=== PATIENT | male | born 1945 | race Caucasian/White ===

== ENCOUNTER 2025-04-16 03:43 | Emergency (ER) | payer MEDICARE, SELFPAY ==
[2025-04-16] VITALS (12 sets, daily range): BP systolic 115–127; BP diastolic 59–61; PULSE 55–62; RESP 18–20; TEMP 36.9; O2SAT 84–97; BMI 34.4
--- NOTE | 2025-04-16 03:53 | DI.CT.S_ITS ---
PROCEDURE: CT ABDOMEN PELVIS W CON INDICATIONS: LLQ pain, L groin pain, acute on chronic TECHNIQUE: After the administration of intravenous contrast, axial sections acquired from the lung bases to the pubic symphysis. Coronal and sagittal reformats were performed. For radiation dose reduction, the following was used: automated exposure control, adjustment of mA and/or kV according to patient size. COMPARISON: None. FINDINGS: Image quality: Diagnostic. Lower Chest: Elevated left diaphragm. Three-vessel coronary artery calcifications are noted. Dependent atelectasis. ABDOMEN: Liver: Fatty infiltration of the liver. No mass, intrahepatic biliary dilation or cirrhosis. Portal vein is patent. Mild enlargement of the liver. Gallbladder: No radiopaque gallstones or wall thickening. Biliary ducts: No biliary dilation. Pancreas: No ductal dilation. Spleen: Size is within normal limits. Adrenal Glands: No adrenal nodules. Kidneys and Ureters: No hydronephrosis. No solid mass. No complex renal cystic lesion which requires follow up. 6 mm nonobstructing mid left renal stone. Stomach and Bowel: Normal colonic caliber, without significant wall thickening. Colonic diverticulosis is present. Subtle inflamed fat lobule on the anterior margin of the sigmoid colon best seen on image 2, 126. Normal appendix. Otherwise, the stomach, small bowel and large bowel are unremarkable. Peritoneum: No abnormal intraperitoneal fluid. No free air. Ventral Wall: No significant ventral hernia. Abdominal Nodes: No retroperitoneal or mesenteric adenopathy by size criteria. Vessels: Aorta and inferior vena cava are normal in size. Moderate atheromatous plaques are noted in the nonaneurysmal abdominal aorta. PELVIS: Pelvic Organs: Mild prostate gland enlargement with coarse and punctate calcifications. Mild seminal vesicle gland enlargement. Bladder: No bladder wall thickening, accounting for underdistention. Pelvic Nodes: No enlarged lymph nodes. Miscellaneous: No inguinal hernias are seen. Bones: No aggressive osseous abnormality. Multilevel degenerative disc disease and facet arthopathy noted. High-grade central canal stenosis noted at L3-4. Left hip arthroplasty noted. Expected postoperative changes are present. IMPRESSION: Imaging findings concerning for epiploic appendagitis of the sigmoid colon. Diverticulosis without definite acute diverticulitis or is complications. Hepatic steatosis. Liver is mildly enlarged. Nonobstructing 6 mm left renal stone. Agree with preliminary interpretation by [facility]. Dictated by: Mai Zhang M.D. on 04/16/2025 at 8:44 Approved by: Mai Zhang M.D. on 04/16/2025 at 8:55
--- NOTE | 2025-04-16 03:54 | ED.ABDPAIN ---
HPI - Abdominal Pain General Chief Complaint: Abdominal Pain Stated Complaint: L hip pain Time Seen by Provider: 04/16/25 03:52 Source: patient, EMS, RN notes reviewed and old records reviewed Mode of arrival: EMS Limitations: no limitations History of Present Illness HPI narrative: 80-year-old male history of coronary artery disease, COPD, dyslipidemia, hypertension, diabetes type 2, strict his sleep apnea, dementia, spinal stenosis, chronic left hip pain Plavix. Ed with complaint of left hip groin pain that he states has been present for several months. Sort of comes and goes but has been more intense tonight. He had sort of waxes and wanes in intensity. He states pushing on it relieves some of the pain. He also notes that he had some increased pain in the left lower side of his belly when he had a bowel movement. He had denies any rectal pain. He has not appreciate any lumps hernias or masses. He denies any recent trauma. Denies any bony pain. He denies fevers or chills. Denies any nausea or vomiting. States he had a normal bowel movement today denies any black or bloody stools. Denies any dysuria urgency or frequency does normally use a brief. Patient states he has had surgeries before but does not recall what they are. He denies any drug allergies. Prior history of tobacco use, occasional social alcohol, no recreational drugs. [facility] Related Data Previous Rx's ?Medication ?Instructions ?Recorded oxycodone 5 mg tablet 5 mg PO QID PRN pain #10 tabs 04/16/25 Review of Systems Review of Systems ROS Unobtainable: All systems reviewed & are unremarkable except as noted in HPI and below Patient History Social History Smoking Status: Former smoker Smoking Status: Former smoker Exam Narrative Exam Narrative: GENERAL: Alert and oriented x three, elderly male in mild distress. HEENT: Head normocephalic, atraumatic, EOMI, pupils reactive, face symmetric, moist mucous membranes NECK: Supple, full range of motion CARDIOVASCULAR: Regular rate and rhythm without murmurs, rubs or gallops. RESPIRATORY: Breath sounds equal bilaterally, no wheezes rales or rhonchi. ABDOMEN: Soft, patient has a left-sided abdominal tenderness on exam, no palpable mass or hernias, tends to be more tender in the abdomen and less so in the groin. Normoactive bowel sounds all 4 quadrants. No guarding or rebound, rigidity, no mass : No CVA tenderness EXTREMITIES: . Nontender over the pelvis and greater trochanters. Normal range of motion, no clubbing or edema. Neurovascularly intact NEUROLOGICAL: Cranial nerves II through XII grossly intact. Moving all extremities SKIN: Warm, dry, no petechiae, no rashes or lesions. Initial Vital Signs Initial Vital Signs: Vital Signs Temperature 98.5 F 04/16/25 03:43 Pulse Rate 62 04/16/25 03:43 Respiratory Rate 20 04/16/25 03:43 Blood Pressure 126/61 04/16/25 03:43 Pulse Oximetry 96 04/16/25 03:43 Oxygen Delivery Method Room Air 04/16/25 03:43 Course Orders Ordered: Discontinued Medications Morphine Sulfate (Morphine 4 Mg/Ml Inj) 4 mg IV NOW ONE Stop: 04/16/25 03:54 Last Admin: 04/16/25 04:07 Dose: 4 mg Documented By: LS Vital Signs Vital signs: Vital Signs - 8 hr 04/16/25 03:43 Temperature 98.5 F Pulse Rate 62 Respiratory Rate 20 Blood Pressure 126/61 Pulse Oximetry 96 Oxygen Delivery Method Room Air MDM - Abdominal Pain Lab Data 04/16/25 04:00 04/16/25 04:00 Labs: Lab Results 04/16/25 Range/Units 04:00 WBC 6.8 (4.5-11.0) X10^3/uL RBC 4.70 (4.5-5.9) X10^6/uL Hgb 13.2 L (13.5-17.5) g/dL Hct 39.9 L (41-53) % MCV 84.9 (80-100) fL MCH 28.2 (26-34) PG MCHC 33.2 (30-36) % RDW 15.4 H (11.6-14.8) % Plt Count 306 (150-400) X10^3/uL Neut % (Auto) 59.2 (50-75) % Lymph % (Auto) 28.8 (25-40) % Crane % (Auto) 9.8 (3-14) % Eos % (Auto) 1.9 L (2-4) % Baso % (Auto) 0.3 (0-2) % Neut # (Auto) 4000 (2773-5120) /uL Lymph # (Auto) 1900 (2304-9804) /uL Crane # (Auto) 700 (0-900) /uL Eos # (Auto) 100 (0-450) /uL Baso # (Auto) 0 (0-100) /uL Sodium 135 L (137-145) mmol/L Potassium 4.3 (3.4-5.1) mmol/L Chloride 100 (98-107) mmol/L Carbon Dioxide 28 (22-32) mmol/L BUN 23 H (9-20) mg/dL Creatinine 1.06 (0.66-1.25) mg/dL Estimated GFR > 60 (>60) mL/min BUN/Creatinine Ratio 21.7 (6-22) Glucose 129 H (70-99) mg/dL Calcium 9.2 (8.4-10.2) mg/dL Total Bilirubin 0.6 (0.2-1.3) mg/dL AST 26 (17-59) IU/L ALT 28 (<50) IU/L Alkaline Phosphatase 98 (38-126) U/L Total Protein 7.6 (6.3-8.2) g/dL Albumin 4.4 (3.5-5.0) g/dL Globulin 3.2 (1.7-4.1) g/dL Albumin/Globulin Ratio 1.4 (1.0-2.8) Lipase 150 (23-300) U/L Point of care testing: Urine Dip Bedside Urine Glucose Negative Bedside Urine Bilirubin + 1 Bedside Urine Ketone - Negative Urine Specific [place] 1.010 Bedside Urine Occult Blood - Negative Bedside Urine pH 6.0 Bedside Urine Protein - Negative Bedside Urine Urobilinogen - Negative Bedside Urine Nitrite - Negative Bedside Urine Leukocytes - Negative Esterase MDM Narrative Medical decision making narrative: Labs white count 6.8 hemoglobin is 13.2 platelets 306 no priors for comparison. Chemistries show sodium 135 BUN 23 glucose of 129 creatinine is 1.06, LFTs are negative lipase is normal. Urine bilirubin, no nitrates, no leuks. CT abdomen pelvis pericolonic inflammatory changes adjacent sigmoid colon was central fat compatible with epiploic appendagitis. Bladder is unremarkable, large volume of stool within the colon. Appendix is normal small bowel is unremarkable. Liver, pancreas spleen and adrenal glands are normal gallbladder is unremarkable. No mesenteric or retroperitoneal lymphadenopathy. No abdominal ascites. Patient received pain medication and pain is improved. Patient is conversant but forgetful. Did review findings from today. Discharge Plan Departure Patient Disposition: Home Clinical Impression: Epiploic appendagitis Activity Restrictions/Additional Instructions: Your workup today shows epiploic appendagitis on your CT, this inflammation of small pieces of fat that hang on the outside and are attached to your large intestine, sometimes these can get twisted and cut off their own blood supply. They are typically treated symptomatically with pain management. That has also noted to be large amount of stool in the colon he would recommend making sure you are taking a stool softener daily particularly of adding any narcotics. You can take acetaminophen up to a 1000 mg every 6 hours if inadequate for pain you can take oxycodone 1-2 tablets every 6 hours as needed. This medication can make you sleepy do not drive, perform hazardous activities or make any major decisions while taking it. This medication will make you constipated please take a stool softener once to twice daily until stools are soft and regular. Prescription printed. Please return for fevers, rapidly worsening pain, any lightheadedness or passing out, black or bloody stools, new changes to location of pain, difficulty or inability to urinate or other new or concerning changes. Prescriptions: New oxycodone 5 mg tablet 5 mg PO QID PRN (Reason: pain) Qty: 10 0RF Stand Alone Forms: Patient Portal/API
[2025-04-16] MEDS: MORPHINE 4 MG/ML INJ IV (04:07)
[2025-04-16 04:08] LABS: Add Manual Diff / Slide Review NO; Hematocrit 39.9 % (41-53); Hemoglobin 13.2 g/dL (13.5-17.5); Lymphocytes Absolute Auto 1900 /uL (1100-4500); Mean Corpuscular HGB Conc 33.2 % (30-36); Mean Corpuscular Hemoglobin 28.2 PG (26-34); Mean Corpuscular Volume 84.9 fL (80-100); Platelet Count 306 X10^3/uL (150-400)
[2025-04-16 04:20] LABS: Alanine Aminotransferase 28 IU/L (<50); Albumin 4.4 g/dL (3.5-5.0); Albumin Globulin Ratio 1.4 (1.0-2.8); Alkaline Phosphatase 98 U/L (38-126); Blood Urea Nitrogen 23 mg/dL (9-20); Calcium 9.2 mg/dL (8.4-10.2); Carbon Dioxide 28 mmol/L (22-32); Chloride 100 mmol/L (98-107); Estimated Glomerular Filt Rate > 60 mL/min (>60); Globulin 3.2 g/dL (1.7-4.1); Glucose 129 mg/dL (70-99); HEMOLYSIS 35 (0-50); Lipase 150 U/L (23-300); Potassium 4.3 mmol/L (3.4-5.1); Sodium 135 mmol/L (137-145); Total Protein 7.6 g/dL (6.3-8.2)
--- NOTE | 2025-04-16 04:25 | PC.NURSE ---
Pt to imaging via ED stretcher with imaging analyst
== END 2025-04-16 07:26 | disposition home or self-care (01) ==
PROVIDERS: Emergency Provider Emergency Medicine
DX: K63.89 Other specified diseases of intestine (principal); Z79.01 Long term (current) use of anticoagulants
CPT/HCPCS: 36415; 74177; 80053; 81003; 83690; 85025; 96374; 99284; J2272; Q9967

== ENCOUNTER → 2025-06-18 06:28 | Outpatient (ROUT) | payer MEDICARE, SELFPAY ==
[2025-06-18 09:54] LABS: Blood Urea Nitrogen 22 mg/dL (9-20); Calcium 9.3 mg/dL (8.4-10.2); Carbon Dioxide 27 mmol/L (22-32); Chloride 100 mmol/L (98-107); Estimated Glomerular Filt Rate > 60 mL/min (>60); Glucose 200 mg/dL (70-99); HEMOLYSIS 30 (0-50); Magnesium 1.8 mg/dL (1.6-2.3); Potassium 4.2 mmol/L (3.4-5.1); Sodium 136 mmol/L (137-145)
== END ==
LOC: LAB 06:29
PROVIDERS: Visit Provider Registered Nurse
DX: R60.9 Edema, unspecified (principal)
CPT/HCPCS: 36415; 80048; 83735

== ENCOUNTER 2025-06-21 12:59 | Observation (INO) | payer MEDICARE, SELFPAY ==
[2025-06-21] VITALS (15 sets, daily range): BP systolic 106–125; BP diastolic 50–78; PULSE 58–65; RESP 11–22; TEMP 36.2–36.4; O2SAT 91–99; BMI 37.8
--- NOTE | 2025-06-21 13:01 | DI.RAD.S_ITS ---
PROCEDURE: XR CHEST 1V INDICATIONS: Possible stroke TECHNIQUE: One view of the chest was acquired. COMPARISON: None. FINDINGS: Surgical changes and devices: None. Lungs and pleura: Lungs are clear. No pleural effusions or pneumothorax. Mediastinum: Mediastinal contours appear normal. Heart size is enlarged. Bones and chest wall: No suspicious bony lesions. Overlying soft tissues appear unremarkable. IMPRESSION: No acute cardiopulmonary pathology. Dictated by: Jeison Astorga M.D. on 06/21/2025 at 13:35 Approved by: Jeison Astorga M.D. on 06/21/2025 at 13:36
--- NOTE | 2025-06-21 13:01 | DI.CT.S_ITS ---
PROCEDURE: CT ANGIO HEAD AND NECK INDICATIONS: confused,left hand weakness TECHNIQUE: After the administration of intravenous contrast, 1 mm thick sections acquired from the aortic arch through the [place] of [place]. 3-dimensional wqoylln-hwaikwywb-mumsimoalg (MIP) and/or volume rendering reformats were acquired of the central intracranial vasculature and neck separately. For radiation dose reduction, the following was used: automated exposure control, adjustment of mA and/or kV according to patient size. COMPARISON: None. FINDINGS: Image quality: Diagnostic. Cerebral CT Angiogram: Internal carotid arteries: No acute findings. Intracranial ICA are patent with no significant stenosis. No occlusion. No aneurysm. Anterior cerebral arteries: Unremarkable. No significant stenosis. No occlusion. No aneurysm. Middle cerebral arteries: Unremarkable. No significant stenosis. No occlusion. No aneurysm. Posterior cerebral arteries: Unremarkable. No significant stenosis. No occlusion. No aneurysm. Basilar artery: Unremarkable. No significant stenosis. No occlusion. No aneurysm. Vertebral arteries: Unremarkable as visualized. Dural venous sinuses: Unremarkable given phase of enhancement. Other: Arterial phase appearance of the brain parenchyma is unremarkable. Neck CT Angiogram: Internal carotid arteries: Unremarkable. No significant stenosis. No dissection or occlusion. Common carotid arteries: Unremarkable. No significant stenosis. No dissection or occlusion. External carotid arteries: Unremarkable. No occlusion. Vertebral arteries: Unremarkable. No significant stenosis. No dissection or occlusion. Aortic Arch and Mediastinum: Partially visualized aortic arch unremarkable without evidence of aneurysm. Origins of the great vessels unremarkable. Other: Arterial phase soft tissues of the neck and chest are unremarkable. IMPRESSION: 1. No significant intracranial arterial abnormality is seen. 2. No significant abnormality is seen within the arteries of the neck. Any quantitative measurements of stenosis were performed using NASCET criteria. Dictated by: Jeison Astorga M.D. on 06/21/2025 at 13:34 Approved by: Jeison Astorga M.D. on 06/21/2025 at 13:35
--- NOTE | 2025-06-21 13:01 | DI.CT.S_ITS ---
PROCEDURE: CT STROKE INDICATIONS: Positive BE-FAST, Stroke symptoms TECHNIQUE: Noncontrast 4.5 mm thick angled axial sections acquired from the foramen magnum to the vertex, with coronal reformats. For radiation dose reduction, the following was used: automated exposure control, adjustment of mA and/or kV according to patient size. COMPARISON: None. FINDINGS: Image quality: Diagnostic. CSF spaces: Basal cisterns are patent. No extra-axial fluid collections. The ventricles are symmetric in size and shape. Brain: No intracranial bleeds or mass effect. There is cerebral volume loss, with resultant ventricular and sulcal prominence. There are periventricular and deep white matter chronic small vessel ischemic changes. There is intracranial internal carotid artery atherosclerosis. Skull and face: Calvarium and visualized facial bones appear intact, without suspicious lesions. Sinuses: Visualized sinuses and mastoids are clear. IMPRESSION: 1. No acute intracranial pathology. 2. Age related volume loss and mild white matter small vessel chronic ischemic changes. Findings were reported to ordering ER physician at the time of dictation. This study fulfills neurological imaging criteria for inclusion or exclusion of acute stroke therapies based on available published neurological guidelines. Dictated by: Jeison Astorga M.D. on 06/21/2025 at 13:12 Approved by: Jeison Astorga M.D. on 06/21/2025 at 13:13
[2025-06-21 13:19] LABS: Add Manual Diff / Slide Review NO; Hematocrit 40.3 % (41-53); Hemoglobin 13.4 g/dL (13.5-17.5); Lymphocytes Absolute Auto 1700 /uL (1100-4500); Mean Corpuscular HGB Conc 33.2 % (30-36); Mean Corpuscular Hemoglobin 28.1 PG (26-34); Mean Corpuscular Volume 84.6 fL (80-100); Platelet Count 299 X10^3/uL (150-400)
[2025-06-21 13:29] LABS: INR 1.2 (0.9-1.3); Prothrombin Time 13.2 SECONDS (9.4-12.5)
--- NOTE | 2025-06-21 13:30 | EKG_ITS ---
[place] [id number] [place] [id number] Test Date: 2025-06-21 Pat Name: Bernardo Moeller Department: [facility] Room: Gender: Male [employer]: PATRICA : 1945 Requested By: Order Number: [id number] Reading MD: Preet Gonzales MD Measurements Intervals [place] Rate: 65 P: 53 MS: 218 QRS: 16 QRSD: 104 T: 27 QT: 434 QTc: 451 Interpretive Statements Sinus rhythm with 1st degree AV block Low voltage QRS Electronically Signed On 06-22-2025 9:19:28 PST by Preet Gonzales MD
[2025-06-21 13:31] LABS: PTT Partial Thromboplastin Tim 28 SECONDS (25.1-36.5)
[2025-06-21 13:32] LABS: Alanine Aminotransferase 27 IU/L (<50); Albumin 4.2 g/dL (3.5-5.0); Albumin Globulin Ratio 1.4 (1.0-2.8); Alkaline Phosphatase 92 U/L (38-126); Blood Urea Nitrogen 21 mg/dL (9-20); Calcium 8.8 mg/dL (8.4-10.2); Carbon Dioxide 30 mmol/L (22-32); Chloride 99 mmol/L (98-107); Creatine Kinase 62 U/L (55-170); Estimated Glomerular Filt Rate > 60 mL/min (>60); Globulin 3.1 g/dL (1.7-4.1); Glucose 137 mg/dL (70-99); HEMOLYSIS < 15 (0-50); Potassium 4.0 mmol/L (3.4-5.1); Sodium 138 mmol/L (137-145); Total Protein 7.3 g/dL (6.3-8.2)
--- NOTE | 2025-06-21 13:34 | ED.NEUROSD ---
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 Last known well 1130. NIH 6. BP 150/110, glucose 114. Past medical history significant for CVA, TIA, NV on plavix, dementia, hypercholesterolemia, major depressive disorder, generalized anxiety disorder, heart failure, COPD, pain and left hip. History is limited due to patient's dementia. He does complain of intermittent pounding headaches. Collateral was obtained by granddaughter at bedside who stated that patient seems to be having a bad day. Granddaughter stated patient has a history of CVA and TIAs, several instrumentation in the left upper extremity, and other chronic illnesses with resultant left upper extremity weakness. He has bilateral lower extremity neuropathy. Related Data Previous Rx's ?Medication ?Instructions ?Recorded oxycodone 5 mg tablet 5 mg PO QID PRN pain #10 tabs 04/16/25 Allergies Allergy/AdvReac Type Severity Reaction Status Date / Time No Known Drug Allergies Allergy Verified 06/21/25 13:26 Review of Systems Review of Systems Narrative: See HPI. Patient History Social History Smoking Status: Unknown if ever smoked Smoking Status: Unknown if ever smoked Exam Narrative Exam Narrative: Vitals: Reviewed by myself. Gen: Well-developed, well-nourished, no acute distress. Eyes: No scleral icterus. EOMI. No gaze deviation. Cards: Bradycardic, no murmurs, rubs, gallops. Pulm: Clear to auscultation bilaterally. Abd: Obese, soft, nondistended, nontender to palpation in all quadrants. Ext: Moving upper extremities spontaneously. Strength in left upper extremity 4/5, right upper extremity 5/5. Can wiggle toes however has significant left lower extremity pain with flexion at the hip. Skin: No rashes noted. Neuro: A&O x2 (location and president), he remembered me as his physician on reentry into his room. Psych: Pleasant, unable to provide much historical background. Initial Vital Signs Initial Vital Signs: Vital Signs Pulse Rate 65 06/21/25 13:23 Respiratory Rate 11 L 06/21/25 13:23 Pulse Oximetry 94 06/21/25 13:23 Scores NIH Stroke Scale Citation:: Left leg motor drift: No effort against gravity Right leg motor strength: No effort against gravity NIHSS - 6 points Course Course Course Narrative: 1434 Updated family at bedside [address] Joyner who will admit patient Orders Ordered: ED Orders 06/21/25 13:[address] angio head and neck Stat XR chest 1V Stat EKG-12 Lead Stat 06/21/25 13:12 Complete Blood Count AUTO DIFF Stat Comprehensive Metabolic Panel Stat PTT Partial Thromboplastin Noah Stat Prothrombin Time INR Stat Troponin & CK Cardiac Panel Stat 06/21/25 13:43 Urinalysis and Microscopic Stat Urine Drug Screen, Rapid Stat 06/21/25 13:55 XR hip w pel LT 2V Stat Acetaminophen (Acetaminophen 325 Mg Tablet) 650 mg PO Q6H PRN PRN Reason: Fever/Mild Pain (1-3) Hydrocodone Bitart/Acetaminophen (Hydrocodone/Acet 5/325 Tablet) 2 tab PO Q6HR PRN PRN Reason: Pain, Severe (7-10) Albuterol (Albuterol 2.5 Mg/3 Ml Neb (Adult)) 2.5 mg INH RTQ6HR PRN PRN Reason: Shortness Of Breath Atorvastatin Calcium (Atorvastatin 20 Mg Tablet) 40 mg PO BEDTIME KULWINDER Bupropion HCl (Bupropion Sr 150 Mg Tab) 150 mg PO DAILY KULWINDER Clopidogrel Bisulfate (Clopidogrel 75 Mg Tablet) 75 mg PO DAILY KULWINDER Diclofenac Sodium (Diclofenac 1% Gel 100 Gm) 1 applic TOP TID KULWINDER Furosemide (Furosemide 40 Mg Tablet) 40 mg PO DAILY KULWINDER Gabapentin (Gabapentin 600 Mg Tablet) 600 mg PO TID KULWINDER Hydromorphone HCl (Hydromorphone Hcl 0.5 Mg/0.5 Ml Syringe) 0.5 mg IV Q2H PRN PRN Reason: Pain, Severe (7-10) Lorazepam (Lorazepam 2 Mg/Ml Inj) 0.5 mg IV Q2HR PRN PRN Reason: Anxiety Methocarbamol (Methocarbamol 500 Mg Tablet) 500 mg PO TID KULWINDER Naloxone HCl (Naloxone 0.4 Mg/Ml Vial) 0.2 mg IV Q2MIN PRN PRN Reason: Opiate Reversal Pantoprazole Sodium (Pantoprazole Dr 40 Mg Tablet) 40 mg PO 0700 KULWINDER Potassium Chloride (Potassium Chloride 10 Meq Tab) 10 meq PO DAILYCC KULWINDER Ropinirole HCl (Ropinirole 1 Mg Tablet) 1 mg PO BID KULWINDER Sodium Chloride (Sodium Chloride 0.9% Flush) 10 ml IV PRN PRN PRN Reason: Flush Sodium Chloride (Sodium Chloride 0.9% Flush) 10 ml IV BID KULWINDER Spironolactone (Spironolactone 25 Mg Tablet) 25 mg PO DAILY KULWINDER Discontinued Medications Hydromorphone HCl (Hydromorphone Hcl 0.5 Mg/0.5 Ml Syringe) 0.5 mg IV NOW ONE Stop: 06/21/25 15:39 Hydromorphone HCl (Hydromorphone 1 Mg/Ml Syringe) 1 mg IV NOW ONE Stop: 06/21/25 15:40 Last Admin: 06/21/25 15:48 Dose: 1 mg Documented By: REJI Sodium Chloride (Normal Saline 0.9%) 1,000 mls @ 1,000 mls/hr IV BOLUS ONE Stop: 06/21/25 15:59 Last Admin: 06/21/25 15:48 Dose: 1,000 mls/hr Documented By: REJI Ibuprofen (Ibuprofen 400 Mg Tablet) 400 mg PO NOW ONE Stop: 06/21/25 15:01 Last Admin: 06/21/25 16:48 Dose: 400 mg Naloxone HCl (Naloxone 0.4 Mg/Ml Vial) 0.1 mg IV Q2MIN PRN PRN Reason: Opiate Reversal Ondansetron HCl (Ondansetron 4 Mg/2 Ml Inj) 4 mg IV NOW PRN PRN Reason: Nausea And Vomiting Ondansetron HCl (Ondansetron 4 Mg Odt) 4 mg PO NOW PRN PRN Reason: Nausea And Vomiting Vital Signs Vital signs: Vital Signs - 8 hr 06/21/25 13:23 06/21/25 13:26 06/21/25 13:29 Temperature 97.6 F Pulse Rate 65 64 65 Respiratory Rate 11 L 14 18 Blood Pressure 125/64 Pulse Oximetry 94 99 96 Oxygen Delivery Method Room Air 06/21/25 13:29 06/21/25 13:30 06/21/25 14:00 Temperature Pulse Rate 64 62 Respiratory Rate 21 Blood Pressure 125/64 Pulse Oximetry 96 96 Oxygen Delivery Method 06/21/25 14:01 06/21/25 14:01 06/21/25 14:30 Temperature Pulse Rate 62 60 Respiratory Rate 22 Blood Pressure 108/50 L Pulse Oximetry 99 96 Oxygen Delivery Method 06/21/25 14:31 06/21/25 14:31 06/21/25 15:05 Temperature Pulse Rate 60 60 Respiratory Rate 21 Blood Pressure 106/53 L Pulse Oximetry 97 Oxygen Delivery Method 06/21/25 15:30 06/21/25 16:01 06/21/25 16:02 Temperature Pulse Rate 61 61 59 L Respiratory Rate 19 17 Blood Pressure Pulse Oximetry 98 91 94 Oxygen Delivery Method 06/21/25 16:02 Temperature Pulse Rate Respiratory Rate Blood Pressure 120/57 L Pulse Oximetry Oxygen Delivery Method MDM - Neuro Symptoms/Deficit Lab Data 06/21/25 13:12 06/21/25 13:12 Labs: Lab Results 06/21/25 06/21/25 06/21/25 Range/Units 13:03 13:12 13:43 WBC 6.6 (4.5-11.0) X10^3/uL RBC 4.77 (4.5-5.9) X10^6/uL Hgb 13.4 L (13.5-17.5) g/dL Hct 40.3 L (41-53) % MCV 84.6 (80-100) fL MCH 28.1 (26-34) PG MCHC 33.2 (30-36) % RDW 15.9 H (11.6-14.8) % Plt Count 299 (150-400) X10^3/uL Neut % (Auto) 63.1 (50-75) % Lymph % (Auto) 25.0 (25-40) % [place] % (Auto) 9.8 (3-14) % Eos % (Auto) 1.9 L (2-4) % Baso % (Auto) 0.2 (0-2) % Neut # (Auto) 4200 (6707-1062) /uL Lymph # (Auto) 1700 (4521-2134) /uL [place] # (Auto) 600 (0-900) /uL Eos # (Auto) 100 (0-450) /uL Baso # (Auto) 0 (0-100) /uL PT 13.2 H (9.4-12.5) SECONDS INR 1.2 (0.9-1.3) APTT 28 (25.1-36.5) SECONDS Sodium 138 (137-145) mmol/L Potassium 4.0 (3.4-5.1) mmol/L Chloride 99 (98-107) mmol/L Carbon Dioxide 30 (22-32) mmol/L BUN 21 H (9-20) mg/dL Creatinine 0.95 (0.66-1.25) mg/dL Estimated GFR > 60 (>60) mL/min BUN/Creatinine Ratio 22.1 H (6-22) Glucose 137 H (70-99) mg/dL POC Whole Bld Glucose 141 H (70-99) mg/dL Calcium 8.8 (8.4-10.2) mg/dL Total Bilirubin 0.3 (0.2-1.3) mg/dL AST 23 (17-59) IU/L ALT 27 (<50) IU/L Alkaline Phosphatase 92 (38-126) U/L Total Creatine Kinase 62 (55-170) U/L Troponin I < 0.012 (0.01-0.034) ng/mL Total Protein 7.3 (6.3-8.2) g/dL Albumin 4.2 (3.5-5.0) g/dL Globulin 3.1 (1.7-4.1) g/dL Albumin/Globulin Ratio 1.4 (1.0-2.8) Urine Color Yellow Urine Appearance Clear Urine pH 6.5 (4.5-8.0) Ur Specific [place] 1.010 (1.000-1.035) Urine Protein Negative (Negative) Urine Glucose (UA) Negative (Negative) g/dL Urine Ketones Negative (NEGATIVE) Urine Occult Blood Negative (Negative) Urine Nitrate Negative (Negative) Urine Bilirubin Negative (NEGATIVE) Urine Urobilinogen 0.2 (0.2) E.U./dL Ur Leukocyte Esterase Negative (NEGATIVE) Urine RBC None seen (0-5/HPF) Urine WBC None seen (0-5/HPF) Ur Squamous Epith Cells None seen (0-5/HPF) Urine Bacteria Occasional (0-1) (None) Ur Culture Indicated? Cult not indicated Vol Urine Centrifuged Low vol <10ml (spun) A U Opiates 300ng/mL cut Positive H (Negative) Ur Oxycodone Screen Negative (Negative) Urine Methadone Screen Negative (Negative) Ur Barbiturates Screen Negative (Negative) U Tricyclic Antidepress Negative (Negative) Ur Phencyclidine Scrn Negative (Negative) Ur Amphetamines Screen Negative (Negative) U Methamphetamines Scrn Negative (Negative) Ur MDMA Scrn (Ecstasy) Negative (Negative) U Benzodiazepines Scrn Negative (Negative) Urine Cocaine Screen Negative (Negative) U Marijuana (THC) Screen Negative (Negative) Urine Specific [place] (Normal) Ur Creatinine (Normal) 06/21/25 Range/Units 13:43 WBC (4.5-11.0) X10^3/uL RBC (4.5-5.9) X10^6/uL Hgb (13.5-17.5) g/dL Hct (41-53) % MCV (80-100) fL MCH (26-34) PG MCHC (30-36) % RDW (11.6-14.8) % Plt Count (150-400) X10^3/uL Neut % (Auto) (50-75) % Lymph % (Auto) (25-40) % [place] % (Auto) (3-14) % Eos % (Auto) (2-4) % Baso % (Auto) (0-2) % Neut # (Auto) (2843-3519) /uL Lymph # (Auto) (1705-2370) /uL [place] # (Auto) (0-900) /uL Eos # (Auto) (0-450) /uL Baso # (Auto) (0-100) /uL PT (9.4-12.5) SECONDS INR (0.9-1.3) APTT (25.1-36.5) SECONDS Sodium (137-145) mmol/L Potassium (3.4-5.1) mmol/L Chloride (98-107) mmol/L Carbon Dioxide (22-32) mmol/L BUN (9-20) mg/dL Creatinine (0.66-1.25) mg/dL Estimated GFR (>60) mL/min BUN/Creatinine Ratio (6-22) Glucose (70-99) mg/dL POC Whole Bld Glucose (70-99) mg/dL Calcium (8.4-10.2) mg/dL Total Bilirubin (0.2-1.3) mg/dL AST (17-59) IU/L ALT (<50) IU/L Alkaline Phosphatase (38-126) U/L Total Creatine Kinase (55-170) U/L Troponin I (0.01-0.034) ng/mL Total Protein (6.3-8.2) g/dL Albumin (3.5-5.0) g/dL Globulin (1.7-4.1) g/dL Albumin/Globulin Ratio (1.0-2.8) Urine Color Urine Appearance Urine pH Normal (4.5-8.0) Ur Specific [place] (1.000-1.035) Urine Protein (Negative) Urine Glucose (UA) (Negative) g/dL Urine Ketones (NEGATIVE) Urine Occult Blood (Negative) Urine Nitrate (Negative) Urine Bilirubin (NEGATIVE) Urine Urobilinogen (0.2) E.U./dL Ur Leukocyte Esterase (NEGATIVE) Urine RBC (0-5/HPF) Urine WBC (0-5/HPF) Ur Squamous Epith Cells (0-5/HPF) Urine Bacteria (None) Ur Culture Indicated? Vol Urine Centrifuged U Opiates 300ng/mL cut (Negative) Ur Oxycodone Screen (Negative) Urine Methadone Screen (Negative) Ur Barbiturates Screen (Negative) U Tricyclic Antidepress (Negative) Ur Phencyclidine Scrn (Negative) Ur Amphetamines Screen (Negative) U Methamphetamines Scrn (Negative) Ur MDMA Scrn (Ecstasy) (Negative) U Benzodiazepines Scrn (Negative) Urine Cocaine Screen (Negative) U Marijuana (THC) Screen (Negative) Urine Specific [place] Normal (Normal) Ur Creatinine Normal (Normal) Imaging Data CT scan - head: Radiologist's Impression: PROCEDURE: CT ANGIO HEAD AND NECK INDICATIONS: confused,left hand weakness TECHNIQUE: After the administration of intravenous contrast, 1 mm thick sections acquired from the aortic arch through the [place] of [place]. 3-dimensional dcdgphb-pgrgfrphg-hpuvrtsmqb (MIP) and/or volume rendering reformats were acquired of the central intracranial vasculature and neck separately. For radiation dose reduction, the following was used: automated exposure control, adjustment of mA and/or kV according to patient size. COMPARISON: None. FINDINGS: Image quality: Diagnostic. Cerebral CT Angiogram: Internal carotid arteries: No acute findings. Intracranial ICA are patent with no significant stenosis. No occlusion. No aneurysm. Anterior cerebral arteries: Unremarkable. No significant stenosis. No occlusion. No aneurysm. Middle cerebral arteries: Unremarkable. No significant stenosis. No occlusion. No aneurysm. Posterior cerebral arteries: Unremarkable. No significant stenosis. No occlusion. No aneurysm. Basilar artery: Unremarkable. No significant stenosis. No occlusion. No aneurysm. Vertebral arteries: Unremarkable as visualized. Dural venous sinuses: Unremarkable given phase of enhancement. Other: Arterial phase appearance of the brain parenchyma is unremarkable. Neck CT Angiogram: Internal carotid arteries: Unremarkable. No significant stenosis. No dissection or occlusion. Common carotid arteries: Unremarkable. No significant stenosis. No dissection or occlusion. External carotid arteries: Unremarkable. No occlusion. Vertebral arteries: Unremarkable. No significant stenosis. No dissection or occlusion. Aortic Arch and Mediastinum: Partially visualized aortic arch unremarkable without evidence of aneurysm. Origins of the great vessels unremarkable. Other: Arterial phase soft tissues of the neck and chest are unremarkable. IMPRESSION: 1. No significant intracranial arterial abnormality is seen. 2. No significant abnormality is seen within the arteries of the neck. Any quantitative measurements of stenosis were performed using NASCET criteria. Dictated by: Jeison Astorga M.D. on 06/21/2025 at 13:34 Approved by: Jeison Astorga M.D. on 06/21/2025 at 13:35 ECG Data Interpretation: Thirteen , EKG was sinus rhythm with first-degree AV block, HR 65, MA 218, QRS 104, QTC 451, no EKG to compare to. [facility] Narrative Medical decision making narrative: Patient is an 80-year-old man with history of dementia, CVA, TIA, [facility] in by EMS today concern for a stroke. Last known well at 11:30 a.m. On evaluation NIHSS 6. Differential diagnosis: Ischemic stroke, vertebral and/or carotid artery dissection, intracerebral hemorrhage, hypertension, complex migraine, hypoglycemia, electrolyte abnormalities, infection to include UTI, other. EMR review: Limited documentation in EMR. Records reviewed from prior ER visit on 04/16/2025 largely unrelated to his presentation today. Labs: CBC without leukocytosis, anemia, thrombocytopenia or left shift. PT elevated at 13.2. INR 1.2, normal. Chemistry without any significant electrolyte abnormalities however BUN 21 which appears to be the patient's baseline when compared to labs obtained on 04/16/2025 and 06/18/2025. Glucose 137. LFTs normal. Urinalysis not consistent with urinary tract infection. Patient was positive for opiates on toxicology screen. EKG: Sinus rhythm with first-degree AV block and low voltage QRS. No other EKGs it compared to. Imaging: CXR: No acute cardiopulmonary pathology Hip XR: Previous left total hip arthroplasty seen. No fracture or dislocation or hardware malfunction noted on imaging. CT head: No evidence of intracranial hemorrhage or mass effect. CTA head/neck: No arterial abnormalities or filling defects seen in arteries of neck or intracranially. ED Course: The patient arrived by EMS from a [facility] for evaluation of possible stroke. His workup?including CT head, CTA head and neck, and laboratory studies?was not suggestive of ischemic or hemorrhagic stroke. He reported a persistent headache throughout his ED stay and was treated with Motrin. I discussed the case with the stroke neurology team, who recommended admission for MRI; however, transfer was not required given the negative initial workup. My initial plan was to obtain the MRI in the ED with the possibility of discharge afterward. The patient was given 1 mg of Dilaudid to facilitate the study, but he remained unable to tolerate lying flat due to neck and left hip pain. By the time these attempts were completed, the MRI window had closed and the study could not be obtained tonight. The patient was admitted for further evaluation and management under the care of Dr. Joyner. Stroke Core Measures Contraindications for TPA in CVA: History of ICH Critical Care Time Critical Care Time Attestation: Patient presented as a code stroke. I spent approximately 35 minutes evaluating patient, reviewing imaging, reviewing prior EMR, discussing history with family at bedside and explaining ER workup as well as admission for MRI. Discharge Plan Departure Patient Disposition: Admitted As Inpatient Clinical Impression: Weakness Altered mental status Qualifiers: Altered mental status type: unspecified Qualified Code(s): R41.82 - Altered mental status, unspecified Admit Date/Time: 06/21/25 16:33 Admit Provider: Jeyson Joyner V
[2025-06-21 13:43] LABS: Troponin I < 0.012 ng/mL (0.01-0.034)
--- NOTE | 2025-06-21 13:55 | DI.RAD.S_ITS ---
PROCEDURE: XR HIP W PEL IF DONE LT 2V INDICATIONS: left hip pain TECHNIQUE: AP pelvis with lateral view(s) of the left hip(s). COMPARISON: None. FINDINGS: Bones: There is prior left total hip arthroplasty. Left hip alignment is anatomic. No gross hardware loosening or failure. No fractures or dislocations. Pelvic ring appears intact. No suspicious bony lesions. Soft tissues: The visualized bowel gas pattern is normal. No suspicious soft tissue calcifications. IMPRESSION: Prior left total hip arthroplasty. No acute fracture or dislocation. No gross hardware loosening or failure. Dictated by: Jeison Astorga M.D. on 06/21/2025 at 15:14 Approved by: Jeison Astorga M.D. on 06/21/2025 at 15:14
[2025-06-21 14:07] LABS: Appearance Urine UA CLEAR; Bilirubin Urine UA NEGATIVE (NEGATIVE); Color Urine UA YELLOW; Glucose Urine UA NEGATIVE (Negative); Ketones Urine UA NEGATIVE (NEGATIVE); Leukocyte Esterase Urine UA NEGATIVE (NEGATIVE); Nitrite Urine UA NEGATIVE (Negative); Occult Blood Urine UA NEGATIVE (Negative); Protein Urine UA NEGATIVE (Negative); Specific Gravity Urine UA 1.010 (1.000-1.035); Urobilinogen Urine UA 0.2 E.U./dL (0.2); pH Urine UA 6.5 (4.5-8.0)
[2025-06-21 14:11] LABS: UR Morphine/Opiate cutoff 300 Positive (Negative); Ur Specific Gravity Normal (Normal); Urine MDMA Negative (Negative); Urine Methamphetamines Negative (Negative); Urine Tetrahydrocannabinol Negative (Negative); Urine Tricyclic Antidepressant Negative (Negative)
[2025-06-21 14:13] LABS: Culture Indicated Urine Cult Not Indicated
--- NOTE | 2025-06-21 14:17 | PC.NURSE ---
patient has weakness on his left side in his left arm and left leg. he is unable to state how long its been like that for. he cannot feel anything on both sides of his legs below the knees. he has some strength in his right leg and very little movement on the left. speech is clear and coherant. face is symmetrical
[2025-06-21] MEDS: SODIUM CHLORIDE 0.9% 1,000 ML 1000 ML IV (15:48)
--- NOTE | 2025-06-21 16:09 | PC.NURSE ---
patient stated that he could not lay flat due to low back pain. Provider notified prior to MRI. Patient was given pain medications and given time to report pain relief then was laid flat. pt was in pain. pt attempted to transfer to MRI stretcher and could not tolerate laying flat due to neck pain as well as hip pain. Provider made aware of patient comfort and inability to lay flat. will continue to monitor.
[2025-06-21] MEDS: IBUPROFEN 400 MG TABLET PO (16:48)
--- NOTE | 2025-06-21 17:18 | P.HP_ITS ---
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 The history is obtained from the emergency department physician as the patient has dementia and states he does not know what led him to be in the emergency department evening. He underwent evaluation including an unremarkable head CT and head and neck CT angiogram and emergency department provider was advised by the [facility] tele stroke program to admit the patient for observation and MRI imaging. Given his chronic back pain he was unable to lie flat for the MRI in the emergency department this evening. He denies chest pain, shortness for breath, abdominal pain, headache, or other new or concerning symptoms this evening. Home medications have not been reconciled yet but include: Methocarbamol 500 mg 3 times daily Gabapentin 600 mg 3 times daily Voltaren gel 1% to left hip 3 times daily Spironolactone 25 mg daily Pantoprazole 40 mg daily Potassium chloride ER 10 mEq daily Ropinirole 1 mg twice daily new in line Incruse Ellipta 62.5 mcg 1 puff daily Furosemide 40 mg daily Clopidogrel 75 mg daily Bupropion ER 150 mg daily Budesonide/formoterol fumarate 160-4.5 mcg 2 puffs twice daily Atorvastatin 40 mg daily Hydrocodone-acetaminophen 11/3251 tablets every 6 hours as needed for pain Melatonin 10 mg nightly Alprazolam 0.5 mg every 6 hours as needed for anxiety Nitroglycerin 0.4 mg sublingual as needed for chest pain Acetaminophen ER 650 mg 2 tablets every 8 hours as needed for pain Albuterol inhaler 2 puffs every 6 hours as needed for wheezing Fluticasone nasal spray 1 spray each nostril daily Social history he lives at [facility]. His daughter Chey Moeller is his surrogate decision maker. He states he quit smoking many years ago. No alcohol use. He was born in [place] where he lived until he was 4 years old. [facility] Social History Smoking Status: Unknown if ever smoked Meds Home Medications and Allergies Home Medications ?Medication ?Instructions ?Recorded ?Confirmed ?Type oxycodone 5 mg tablet 5 mg PO QID PRN pain #10 tab s 04/16/25 Rx Allergies Allergy/AdvReac Type Severity Reaction Status Date / Time No Known Drug Allergies Allergy Verified 06/21/25 13:26 Review of Systems Review of Systems ROS: Yes All systems reviewed with the patient and are negative except as otherwise documented Exam Vital Signs (past 8 hours): - 06/21/25 13:23 06/21/25 13:26 06/21/25 13:29 Temperature 97.6 F Pulse Rate 65 64 65 Respiratory Rate 11 L 14 18 Blood Pressure 125/64 Pulse Oximetry 94 99 96 Oxygen Delivery Method Room Air 06/21/25 13:29 06/21/25 13:30 06/21/25 14:00 Temperature Pulse Rate 64 62 Respiratory Rate 21 Blood Pressure 125/64 Pulse Oximetry 96 96 Oxygen Delivery Method 06/21/25 14:01 06/21/25 14:01 06/21/25 14:30 Temperature Pulse Rate 62 60 Respiratory Rate 22 Blood Pressure 108/50 L Pulse Oximetry 99 96 Oxygen Delivery Method 06/21/25 14:31 06/21/25 14:31 06/21/25 15:05 Temperature Pulse Rate 60 60 Respiratory Rate 21 Blood Pressure 106/53 L Pulse Oximetry 97 Oxygen Delivery Method 06/21/25 15:30 06/21/25 16:01 06/21/25 16:02 Temperature Pulse Rate 61 61 59 L Respiratory Rate 19 17 Blood Pressure Pulse Oximetry 98 91 94 Oxygen Delivery Method 06/21/25 16:02 Temperature Pulse Rate Respiratory Rate Blood Pressure 120/57 L Pulse Oximetry Oxygen Delivery Method Oxygen Delivery Method Room Air Narrative Exam Narrative: GENERAL: This is a well-nourished, well-developed patient, in no apparent distress. HEAD: Atraumatic. Normocephalic. No temporal or scalp tenderness. EYES: Pupils equal round and reactive. Extraocular motions intact. No scleral icterus. No injection or drainage. ENT: Mucous membranes pink and moist. NECK: Trachea midline. No JVD, bruits or lymphadenopathy. Supple, nontender, no meningeal signs. CARDIOVASCULAR: Regular rate and rhythm without murmurs, gallops, or rubs. RESPIRATORY: Clear to auscultation. GASTROINTESTINAL: Abdomen soft, non-tender, nondistended. EXTREMITIES: No clubbing, cyanosis, or edema. BACK: Nontender without deformity or crepitance. No flank tenderness. NEUROLOGIC: Alert, oriented, speech fluent, left arm with mild pronator drift on exam, which he states is chronic, lower extremities without focal deficit though he reports considerable pain with movement due to chronic left hip pain. DERMATOLOGIC: No rashes or skin lesions. Objective ECG Impression: Sinus rhythm, first-degree AV block [place] 218 milliseconds, low-voltage QRS, no acute ischemic changes. No comparison available. Imaging *: Radiologist's impression: 1. Brain CT 06/21/2025: 1. No acute intracranial pathology. 2. Age related volume loss and mild white matter small vessel chronic ischemic changes. 2. Chest x-ray 06/21/2025: No acute cardiopulmonary pathology. 3. Head/neck CTA 06/21/2025: 1. No significant intracranial arterial abnormality is seen. 2. No significant abnormality is seen within the arteries of the neck. 4. Left hip x-ray 06/21/2025: Prior left total hip arthroplasty. No acute fracture or dislocation. No gross hardware loosening or failure. Labs 06/21/25 13:12 06/21/25 13:12 Labs: Laboratory Results - last 24 hr 06/21/25 06/21/25 06/21/25 13:03 13:12 13:43 WBC 6.6 RBC 4.77 Hgb 13.4 L Hct 40.3 L MCV 84.6 MCH 28.1 MCHC 33.2 RDW 15.9 H Plt Count 299 Neut % (Auto) 63.1 Lymph % (Auto) 25.0 Bryan % (Auto) 9.8 Eos % (Auto) 1.9 L Baso % (Auto) 0.2 Neut # (Auto) 4200 Lymph # (Auto) 1700 Bryan # (Auto) 600 Eos # (Auto) 100 Baso # (Auto) 0 PT 13.2 H INR 1.2 APTT 28 Sodium 138 Potassium 4.0 Chloride 99 Carbon Dioxide 30 BUN 21 H Creatinine 0.95 Estimated GFR > 60 BUN/Creatinine Ratio 22.1 H Glucose 137 H POC Whole Bld Glucose 141 H Calcium 8.8 Total Bilirubin 0.3 AST 23 ALT 27 Alkaline Phosphatase 92 Total Creatine Kinase 62 Troponin I < 0.012 Total Protein 7.3 Albumin 4.2 Globulin 3.1 Albumin/Globulin Ratio 1.4 Urine Color Yellow Urine Appearance Clear Urine pH 6.5 Ur Specific [place] 1.010 Urine Protein Negative Urine Glucose (UA) Negative Urine Ketones Negative Urine Occult Blood Negative Urine Nitrate Negative Urine Bilirubin Negative Urine Urobilinogen 0.2 Ur Leukocyte Esterase Negative Urine RBC None seen Urine WBC None seen Ur Squamous Epith Cells None seen Urine Bacteria Occasional (0-1) Ur Culture Indicated? Cult not indicated Vol Urine Centrifuged Low vol <10ml (spun) A U Opiates 300ng/mL cut Positive H Ur Oxycodone Screen Negative Urine Methadone Screen Negative Ur Barbiturates Screen Negative U Tricyclic Antidepress Negative Ur Phencyclidine Scrn Negative Ur Amphetamines Screen Negative U Methamphetamines Scrn Negative Ur MDMA Scrn (Ecstasy) Negative U Benzodiazepines Scrn Negative Urine Cocaine Screen Negative U Marijuana (THC) Screen Negative Urine Specific [place] Ur Creatinine 06/21/25 13:43 WBC RBC Hgb Hct MCV MCH MCHC RDW Plt Count Neut % (Auto) Lymph % (Auto) Bryan % (Auto) Eos % (Auto) Baso % (Auto) Neut # (Auto) Lymph # (Auto) Bryan # (Auto) Eos # (Auto) Baso # (Auto) PT INR APTT Sodium Potassium Chloride Carbon Dioxide BUN Creatinine Estimated GFR BUN/Creatinine Ratio Glucose POC Whole Bld Glucose Calcium Total Bilirubin AST ALT Alkaline Phosphatase Total Creatine Kinase Troponin I Total Protein Albumin Globulin Albumin/Globulin Ratio Urine Color Urine Appearance Urine pH Normal Ur Specific [place] Urine Protein Urine Glucose (UA) Urine Ketones Urine Occult Blood Urine Nitrate Urine Bilirubin Urine Urobilinogen Ur Leukocyte Esterase Urine RBC Urine WBC Ur Squamous Epith Cells Urine Bacteria Ur Culture Indicated? Vol Urine Centrifuged U Opiates 300ng/mL cut Ur Oxycodone Screen Urine Methadone Screen Ur Barbiturates Screen U Tricyclic Antidepress Ur Phencyclidine Scrn Ur Amphetamines Screen U Methamphetamines Scrn Ur MDMA Scrn (Ecstasy) U Benzodiazepines Scrn Urine Cocaine Screen U Marijuana (THC) Screen Urine Specific [place] Normal Ur Creatinine Normal Assessment & Plan Assessment & Plan narrative: 1. New onset left arm weakness, possible TIA. 2. Chronic low back and hip pain. 3. Cerebrovascular disease. 4. Coronary artery disease. 5. Hypertension. 6. Hyperlipidemia. 7. GERD. 8. Restless legs syndrome 9. COPD. 10. Anxiety. Plan: -admit to observation -MRI brain -analgesia and anxiolytics to facilitate MRI -serial neurologic exams -telemetry -continue routine home medications DVT prophylaxis: Low risk for overnight observation admission Code status: Full code. He has a POLST form signed enclosed in the chart dated 04/06/2025. His daughter is his surrogate decision maker Quality MIPS - Admit I confirm the patient?s Advance Care Plan is present, Code status is documented, Surrogate decision maker is in patient?s record [If Yes, STOP here]: Yes [facility] - Meds 'Current medications' to include all prescriptions, [id number] products, herbals, cannabis/cannabidiol products, and vitamin/mineral/dietary (nutritional) supplements. I have utilized all available resources to obtain, update, or review the patient?s current medications. [If Yes, STOP here]: Yes [facility] Document charge(s): No Charge Codes Initial inpatient/observation care: 41679
--- NOTE | 2025-06-21 18:33 | PC.NURSE ---
Addendum entered by Vale Pereira RN 06/21/25 18:36: He has also been oriented to room and call light. High fall risk for now. Agrees to not get OOB without help from staff. He is also in view room 206. Door to room is open for line of sight. Original Note: Day shift: Pt in room at 1706. A&Ox4 and was able to get from stretcher to bed with minimal assistance. He has no complaints. He ate his entire regular diet dinner without issue. On tele per MD orders. VS WNL. RA. Has Hx left hip surgery and does endorse left hip pain at times.
[2025-06-21] MEDS: GABAPENTIN 600 MG TABLET PO (21:23)
[2025-06-21] MEDS: ATORVASTATIN 20 MG TABLET 40 MG PO (21:23)
[2025-06-21] MEDS: SODIUM CHLORIDE 0.9% FLUSH 10 ML IV (21:24)
[2025-06-22 04:00] VITALS: BP 149/64; PULSE 58; RESP 16; TEMP 36.3; O2SAT 98
[2025-06-22] MEDS: PANTOPRAZOLE DR 40 MG TABLET PO (05:34)
[2025-06-22 06:14] LABS: Cholesterol 160 mg/dL (140-199); HDL Cholesterol 35 mg/dL (40-60); Triglycerides 176 mg/dL (35-150)
[2025-06-22 08:00] VITALS: BP 118/54; PULSE 53; RESP 15; TEMP 36.4; O2SAT 96
[2025-06-22] MEDS: GABAPENTIN 600 MG TABLET PO (08:27)
[2025-06-22] MEDS: CLOPIDOGREL 75 MG TABLET PO (08:27)
[2025-06-22] MEDS: SPIRONOLACTONE 25 MG TABLET PO (08:27)
[2025-06-22] MEDS: POTASSIUM CHLORIDE 10 MEQ TAB PO (08:27)
[2025-06-22] MEDS: SODIUM CHLORIDE 0.9% FLUSH 10 ML IV (08:28)
[2025-06-22] MEDS: FUROSEMIDE 40 MG TABLET PO (08:28)
--- NOTE | 2025-06-22 10:38 | P.DS_ITS ---
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 The history is obtained from the emergency department physician as the patient has dementia and states he does not know what led him to be in the emergency department evening. He underwent evaluation including an unremarkable head CT and head and neck CT angiogram and emergency department provider was advised by the [facility] tele stroke program to admit the patient for observation and MRI imaging. Given his chronic back pain he was unable to lie flat for the MRI in the emergency department this evening. He denies chest pain, shortness for breath, abdominal pain, headache, or other new or concerning symptoms this evening. Discharge Providers Provider Date of admission: 06/21/25 16:33 Discharge Date: 06/22/25 Discharge provider: Jeyson Joyner MD Summary Hospital Course Discharge Diagnosis: 1. New onset left arm weakness, possible TIA. 2. Chronic low back and hip pain. 3. Cerebrovascular disease. 4. Coronary artery disease. 5. Hypertension. 6. Hyperlipidemia. 7. GERD. 8. Restless legs syndrome 9. COPD. 10. Anxiety. Hospital Course: The patient was admitted and observed on telemetry overnight. He had no new neurologic events. Unfortunately, due to chronic back pain, despite administration of anxiolytics and analgesics, he was unable to tolerate positioning for a MRI scan and this procedure was canceled. Patient is already on maximal medical therapy for stroke prevention and no medication changes are recommended at this time. Furthermore, the nature his presentation was in some question as he was unable to provide history and there were no witnessed reports from his facility. Recommend close monitoring and observation and reporting further neurologic events in detail to his primary provider. Status at Discharge Cognitive/behavioral status at discharge: oriented and at baseline, confused Functional status at discharge: bed bound Overall status at discharge: patient is back to baseline Time Spent with Patient Time spent: Greater than 30 minutes Exam Vital Signs (past 8 hours): - 06/22/25 04:00 06/22/25 08:00 Temperature 97.3 F L 97.6 F Pulse Rate 58 L 53 L Respiratory Rate 16 15 Blood Pressure 149/64 H 118/54 L Pulse Oximetry 98 96 Oxygen Flow Rate 0 0 Oxygen Delivery Method Room Air Oxygen Flow Rate 0 Narrative Exam Narrative: GENERAL: This is a well-nourished, well-developed patient, in no apparent distress. EYES: Pupils equal round and reactive. Extraocular motions intact. No scleral icterus. No injection or drainage. ENT: Mucous membranes pink and moist. NECK: Trachea midline. No JVD, bruits or lymphadenopathy. Supple, nontender, no meningeal signs. CARDIOVASCULAR: Regular rate and rhythm without murmurs, gallops, or rubs. RESPIRATORY: Clear to auscultation. GASTROINTESTINAL: Abdomen soft, non-tender, nondistended. EXTREMITIES: No clubbing, cyanosis, or edema. BACK: Nontender without deformity or crepitance. No flank tenderness. He reports pain with slight movement. NEUROLOGIC: Alert, oriented, speech fluent, left arm with mild pronator drift on exam, which he states is chronic, lower extremities without focal deficit though he reports considerable pain with movement due to chronic left hip pain. DERMATOLOGIC: No rashes or skin lesions. Objective ECG Impression: Sinus rhythm, first-degree AV block [place] 218 milliseconds, low-voltage QRS, no acute ischemic changes. No comparison available. Imaging *: Radiologist's impression: 1. Brain CT 06/21/2025: 1. No acute intracranial pathology. 2. Age related volume loss and mild white matter small vessel chronic ischemic changes. 2. Chest x-ray 06/21/2025: No acute cardiopulmonary pathology. 3. Head/neck CTA 06/21/2025: 1. No significant intracranial arterial abnormality is seen. 2. No significant abnormality is seen within the arteries of the neck. 4. Left hip x-ray 06/21/2025: Prior left total hip arthroplasty. No acute fracture or dislocation. No gross hardware loosening or failure. Labs 06/21/25 13:12 06/21/25 13:12 Labs: Laboratory Results - last 24 hr 06/21/25 06/21/25 06/21/25 13:03 13:12 13:43 WBC 6.6 RBC 4.77 Hgb 13.4 L Hct 40.3 L MCV 84.6 MCH 28.1 MCHC 33.2 RDW 15.9 H Plt Count 299 Neut % (Auto) 63.1 Lymph % (Auto) 25.0 [place] % (Auto) 9.8 Eos % (Auto) 1.9 L Baso % (Auto) 0.2 Neut # (Auto) 4200 Lymph # (Auto) 1700 [place] # (Auto) 600 Eos # (Auto) 100 Baso # (Auto) 0 PT 13.2 H INR 1.2 APTT 28 Sodium 138 Potassium 4.0 Chloride 99 Carbon Dioxide 30 BUN 21 H Creatinine 0.95 Estimated GFR > 60 BUN/Creatinine Ratio 22.1 H Glucose 137 H POC Whole Bld Glucose 141 H Calcium 8.8 Total Bilirubin 0.3 AST 23 ALT 27 Alkaline Phosphatase 92 Total Creatine Kinase 62 Troponin I < 0.012 Total Protein 7.3 Albumin 4.2 Globulin 3.1 Albumin/Globulin Ratio 1.4 Triglycerides Cholesterol LDL Cholesterol, Calc HDL Cholesterol Urine Color Yellow Urine Appearance Clear Urine pH 6.5 Ur Specific [place] 1.010 Urine Protein Negative Urine Glucose (UA) Negative Urine Ketones Negative Urine Occult Blood Negative Urine Nitrate Negative Urine Bilirubin Negative Urine Urobilinogen 0.2 Ur Leukocyte Esterase Negative Urine RBC None seen Urine WBC None seen Ur Squamous Epith Cells None seen Urine Bacteria Occasional (0-1) Ur Culture Indicated? Cult not indicated Vol Urine Centrifuged Low vol <10ml (spun) A U Opiates 300ng/mL cut Positive H Ur Oxycodone Screen Negative Urine Methadone Screen Negative Ur Barbiturates Screen Negative U Tricyclic Antidepress Negative Ur Phencyclidine Scrn Negative Ur Amphetamines Screen Negative U Methamphetamines Scrn Negative Ur MDMA Scrn (Ecstasy) Negative U Benzodiazepines Scrn Negative Urine Cocaine Screen Negative U Marijuana (THC) Screen Negative Urine Specific [place] Ur Creatinine 06/21/25 06/22/25 13:43 05:30 WBC RBC Hgb Hct MCV MCH MCHC RDW Plt Count Neut % (Auto) Lymph % (Auto) [place] % (Auto) Eos % (Auto) Baso % (Auto) Neut # (Auto) Lymph # (Auto) [place] # (Auto) Eos # (Auto) Baso # (Auto) PT INR APTT Sodium Potassium Chloride Carbon Dioxide BUN Creatinine Estimated GFR BUN/Creatinine Ratio Glucose POC Whole Bld Glucose Calcium Total Bilirubin AST ALT Alkaline Phosphatase Total Creatine Kinase Troponin I Total Protein Albumin Globulin Albumin/Globulin Ratio Triglycerides 176 H Cholesterol 160 LDL Cholesterol, Calc 90 HDL Cholesterol 35 L Urine Color Urine Appearance Urine pH Normal Ur Specific [place] Urine Protein Urine Glucose (UA) Urine Ketones Urine Occult Blood Urine Nitrate Urine Bilirubin Urine Urobilinogen Ur Leukocyte Esterase Urine RBC Urine WBC Ur Squamous Epith Cells Urine Bacteria Ur Culture Indicated? Vol Urine Centrifuged U Opiates 300ng/mL cut Ur Oxycodone Screen Urine Methadone Screen Ur Barbiturates Screen U Tricyclic Antidepress Ur Phencyclidine Scrn Ur Amphetamines Screen U Methamphetamines Scrn Ur MDMA Scrn (Ecstasy) U Benzodiazepines Scrn Urine Cocaine Screen U Marijuana (THC) Screen Urine Specific [place] Normal Ur Creatinine Normal PFSH Social History Smoking Status: Unknown if ever smoked Discharge Plan Discharge Plan Patient Disposition: Assisted Living Transportation: Facility vehicle Consult as needed: Dental, Hearing, Mental health, Podiatry and Vision Discharge orders & Medications Discharge Orders: Discharge (Order); Ordered 06/22/25 Ordered By: Jeyson Joyner Prescriptions: Continued oxycodone 5 mg tablet 5 mg PO QID PRN (Reason: pain) Qty: 10 0RF albuterol sulfate 90 mcg/actuation HFA aerosol inhaler 2 puff inhalation Q6H PRN (Reason: shortness of breath or wheezing) alprazolam 0.25 mg tablet 0.5 mg PO Q6H PRN (Reason: anxiety) atorvastatin 40 mg tablet 40 mg PO DAILY budesonide-formoterol 160-4.5 mcg/actuation HFA aerosol inhaler 2 puff inhalation Q12H bupropion HCl 150 mg tablet sustained-release 12 hr 150 mg PO DAILY bupropion HCl 150 mg tablet extended release 24 hr 150 mg PO DAILY furosemide 40 mg tablet 40 mg PO DAILY gabapentin 600 mg tablet 600 mg PO 3XD clopidogrel 75 mg tablet 75 mg PO DAILY fluticasone propionate 50 mcg/actuation spray,suspension 2 spray intranasal DAILY methocarbamol 500 mg tablet 500 mg PO 3XD ropinirole 1 mg tablet 1 mg PO BID potassium chloride 10 mEq tablet extended release 10 meq PO DAILY spironolactone 25 mg tablet 25 mg PO DAILY pantoprazole 40 mg tablet,delayed release (DR/EC) 40 mg PO DAILY nitroglycerin 0.4 mg tablet, sublingual sublingual Incruse Ellipta 62.5 mcg/actuation blister with device 1 inh inhalation DAILY acetaminophen 650 mg tablet extended release 1,300 mg PO Q8H PRN (Reason: pain) melatonin 5 mg tablet 10 mg PO BEDTIME diclofenac sodium [Arthritis Pain (diclofenac)] 1 % gel 2 g topical TID Rx Instructions: left hip hydrocodone-acetaminophen 5-325 mg tablet 1 - 2 tab PO Q6H PRN (Reason: pain) Qty: 10 0RF Visit Report/Discharge Packet Stand Alone Forms: [employer], Patient Portal/API, Stroke Signs & Symptoms, Influenza Vaccine Info, Notice of Privacy Practices, Inpatient vs Outpatient, Pneumococcal Vaccine Info, Pt. Rights & Responsibilities Discharge Data Attending Provider: Jeyson Joyner V Admit Date/Time: 06/21/25 16:33 Quality MIPS - Admit I confirm the patient?s Advance Care Plan is present, Code status is documented, Surrogate decision maker is in patient?s record [If Yes, STOP here]: Yes MIPS - Meds 'Current medications' to include all prescriptions, [id number] products, herbals, cannabis/cannabidiol products, and vitamin/mineral/dietary (nutritional) supplements. I have utilized all available resources to obtain, update, or review the patient?s current medications. [If Yes, STOP here]: Yes MIPS - DC The patient has a history of heart transplant or Left Ventricular Assist Device (LVAD). If yes, STOP here.: No The patient has current or prior documentation of left ventricular ejection fraction (LVEF) less than or equal to 40%, or moderate or severely depressed left ventricular systolic function.: No A. The patient was prescribed or already taking an Angiotensin-Converting Enzyme (VERÓNICA) Inhibitor, or Angiotensin Receptor Jorge (ARB).: No B. The patient was prescribed or already taking a beta-jorge. [If Yes to Both A & B, STOP here]: No Patient not prescribed/taking VERÓNICA or ARB, no reason given.: No Patient not prescribed/taking beta-jorge, no reason given.: No PROFEE Charge Codes Discharge inpatient/observation: [id number]
--- NOTE | 2025-06-22 11:46 | PC.NURSE ---
Discharge note: Discharge instructions given to patients, discussed importance of medication adherence and signs of worsening symptoms. Report given to Louie RN, receiving RN at [facility]. Discharge Summary and medication list/Rx provided to [facility] staff. Patient up OOB to chair with staff and FWW assistace. Dressed with mod assistance. Discharge via WC accompanied by facility staff.
--- NOTE | 2025-06-22 12:28 | CM.DANOTE ---
DCP Assessment note pt is an 80yo M from [facility] here with suspected TIA due to increased confusion and weakness. PMH of dementia. per chart review, pt symptoms have resolved. does not want MRI. provider cleared for home at [facility]. COMMERCIAL COORDINATOR faxed clinicals. spoke with Franc at [facility], will come get him at 1130 and bring back to [facility]. COMMERCIAL COORDINATOR placed script/signed med list in chart. updated RN. P: dc home to [facility] today at 1130. 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 Insurance Medicare DPOA/Assigned Chey Cee Designee Name Contact Information [phone] Advance Directives? Yes Advance Directives No on File History Provided By Patient Prior Living Assisted Living Arrangements Household Members none Type of Relies on Others transporation used prior to admit Facility Name [facility] Admitted From: Independent with ADL No 's Is patient alert and No oriented? Discharge Plan Assisted Living Facility Referrals Initiated None needed Review Status In Process Please Provide Date 06/22/25 Initial DC Assessment Was Performed Next Review Type Continued Stay Review
== END 2025-06-22 12:00 ==
LOC: ED 15:05 → AC 16:33
PROVIDERS: Admitting Provider Internal Medicine; Emergency Provider Student in an Organized Health Care Education/Training Program; Referring Provider Student in an Organized Health Care Education/Training Program; Visit Provider Internal Medicine
DX: R41.0 Disorientation, unspecified (principal); R53.1 Weakness; Z86.73 Personal history of transient ischemic attack (TIA), and cerebral infarction without residual deficits; I25.2 Old myocardial infarction; Z79.01 Long term (current) use of anticoagulants; F03.90 Unspecified dementia, unspecified severity, without behavioral disturbance, psychotic disturbance, mood disturbance, and anxiety; E78.00 Pure hypercholesterolemia, unspecified; F32.A Depression, unspecified; F41.9 Anxiety disorder, unspecified; J44.9 Chronic obstructive pulmonary disease, unspecified; I50.9 Heart failure, unspecified; M25.552 Pain in left hip; R29.706 NIHSS score 6; K21.9 Gastro-esophageal reflux disease without esophagitis; G25.81 Restless legs syndrome; I25.10 Atherosclerotic heart disease of native coronary artery without angina pectoris; I11.0 Hypertensive heart disease with heart failure
CPT/HCPCS: 36415; 70450; 70496; 70498; 71045; 73502; 80053; 80061; 80305; 81001; 82550; 82962; 84484; 85025; 85610; 85730; 93005; 93010; 96361; 96374; 99284; 99291; G0378; J1171; J7030; Q9967